=== PATIENT | female | born 1965 | race Caucasian/White ===

== ENCOUNTER → 2023-06-24 19:02 | Outpatient (REF) | payer BC, SELFPAY | LOC: WDC 19:02 | PROVIDERS: ATTENDING PHYSICIAN Nurse Practitioner | DX: Z12.31 Encounter for screening mammogram for malignant neoplasm of breast (principal) | CPT/HCPCS: 77063; 77067 ==

== ENCOUNTER → 2023-07-01 09:02 | Outpatient (REF) | payer BC, SELFPAY | LOC: RAD 09:02 | PROVIDERS: ATTENDING PHYSICIAN Nurse Practitioner | DX: E04.1 Nontoxic single thyroid nodule (principal) | CPT/HCPCS: 76536 ==

== ENCOUNTER 2024-02-27 17:59 | Inpatient (IN) | payer BC, SELFPAY ==
[2024-02-27] VITALS (15 sets, daily range): BP systolic 0–155; BP diastolic 55–109; BMI 30.7
[2024-02-27] MEDS: MORPHINE SULFATE 2 MG IV (15:14)
--- NOTE | 2024-02-27 15:28 | ED.GENMED ---
History of Present Illness
<Oziel Ham MD - Last Filed: 02/27/24 17:27>
General
Chief Complaint: Extremity Pain (non-traumatic)
Source: patient
Exam Limitations: none
Time Seen by Provider: 02/27/24 14:20
Nursing documentation reviewed up to this point in time: agreed with
History of Present Illness
History of Present Illness:
Patient presents to ED secondary to worsening left thigh pain with swelling, when she accidentally closed the car door on her leg. Denies any other injuries. Denies loss of sensation or weakness. Patient does not take any blood thinning
medications. Denies dizziness or weakness.
Past History
<Oziel Ham MD - Last Filed: 02/27/24 17:27>
Past History
ED Past Medical History: HTN and Other (Migraine)
ED Past Surgical History: Appendectomy, Cholecystectomy and Gynecological
Social History
Tobacco: Non-smoker
Alcohol: Occasional
Drug: None
Personal:
Living: with family
Employment: Employed
Family History
Family History: Other (No significant)
Review of Systems
<Oziel Ham MD - Last Filed: 02/27/24 17:27>
Review of Systems
Allergies reviewed?: Yes
All Other Systems: ROS reviewed and negative except as documented in HPI and ROS
Constitutional: Reports no symptoms
Respiratory: Reports no symptoms
Musculoskeletal: Reports other (leg pain/swelling)
Skin: Reports no symptoms
Neurological: Reports no symptoms
Phy Exam
<Oziel Ham MD - Last Filed: 02/27/24 17:27>
Physical Exam
Physical Exam:
Physical Exam
General: mild painful distress, not acutely ill. afebrile.
Head: nc/at. eomi
Neck: supple. normal range of motion.
Neuro: alert and oriented. no focal neurological deficits
Skin: left distal, medial thigh - an approx 4 cm diameter area of swelling/tenderness
Psychiatric: well kept. interactive and cooperative
Extremities: no calf tenderness.
Course
<Oziel Ham MD - Last Filed: 02/27/24 17:27>
Orders/Labs/Results
Orders:
Orders
02/27/24 14:44
CT Angio Lower Ext W/Wo Iv Contrast [CT Lower Ext Angio W/wo Iv Con] Urgent
Comment:
Reason For Exam: left medial thigh contusion w expanding hematoma
02/27/24 15:00
Morphine Sulfate 2 mg IV NOW STA
02/27/24 15:12
Type+Screen Urgent
Basic Metabolic Panel Urgent
Complete Blood Count/No Diff Urgent
PTT Urgent
Prothrombin Time Urgent
02/27/24 15:32
Fentanyl Citrate/Pf [Sublimaze] 50 mcg IV NOW STA
Ketorolac [Toradol] 15 mg IV NOW STA
02/27/24 15:51
Vascular Surgery Consult Urgent
Consulting Provider: Gilbert Bartlett
Was physician already notified: Yes
Reason for consult: left medial thigh swelling s/p trauma
02/27/24 16:12
HYDROmorphone [Dilaudid] 1 mg .ROUTE .STK-MED ONE
02/27/24 16:18
HYDROmorphone [Dilaudid] 1 mg IV NOW STA
02/27/24 16:27
HYDROmorphone [Dilaudid] 1 mg IV NOW STA
02/27/24 16:35
Fentanyl Citrate/Pf [Sublimaze] 100 mcg .ROUTE .STK-MED ONE
Midazolam HCl [Versed] 2 mg .ROUTE .STK-MED ONE
02/27/24 16:42
Heparin 5,000 units .ROUTE .STK-MED ONE
02/27/24 16:50
Blood Bank Products [* Blood Bank Products] Urgent
Emily Orders: Dhaval Peoples
Blood Bank Products: *Packed RBC Leuko(PRBC's)
Quantity: 2
Transfuse Today: Hold for OR
Reason: Bleeding
02/27/24 16:59
CeFAZolin SODIUM [Ancef] 2,000 mg .ROUTE .STK-MED ONE
Ondansetron Injectable [Zofran] 4 mg .ROUTE .STK-MED ONE
Propofol [Diprivan] 20 ml .ROUTE .STK-MED
Rocuronium [place] [Rocuronium] 50 mg .ROUTE .STK-MED ONE
Sugammadex Sodium [Bridion] 200 mg .ROUTE .STK-MED ONE
02/27/24 17:09
Sugammadex Sodium [Bridion] 200 mg .ROUTE .STK-MED ONE
02/27/24 17:17
VASCULAR OR PATHOLOGY Routine
Pre-Operative Diagnosis: Tense Hematoma
Operative Procedure: Evacuation Left Thigh Hematoma
Surgeon: Shelton
Circulating Nurse: Meredith
Specimen Type: Left Thigh Hematoma
Abnormal Lab Results
02/27/24
15:12
Glucose 103 H mg/dl
(70-99)
Crossmatch IS Only See Detail
02/27/24 15:12
02/27/24 15:12
Vital Signs
Initial and Last Documented VS:
Initial Vital Signs
Temp Pulse Resp BP Pulse Ox
99.1 F 128 18 155/109 96
02/27/24 14:00 02/27/24 14:00 02/27/24 14:00 02/27/24 14:00 02/27/24 14:00
Last Documented Vital Signs
Temp Pulse Resp BP Pulse Ox
99.1 F 111 18 140/84 99
02/27/24 14:00 02/27/24 16:23 02/27/24 16:23 02/27/24 16:23 02/27/24 16:23
<Rayne Mcdonald, DO - Last Filed: 02/27/24 16:22>
Orders/Labs/Results
Orders:
Orders
02/27/24 14:44
CT Angio Lower Ext W/Wo Iv Contrast [CT Lower Ext Angio W/wo Iv Con] Urgent
Comment:
Reason For Exam: left medial thigh contusion w expanding hematoma
02/27/24 15:00
Morphine Sulfate 2 mg IV NOW STA
02/27/24 15:12
Type+Screen Urgent
Basic Metabolic Panel Urgent
Complete Blood Count/No Diff Urgent
PTT Urgent
Prothrombin Time Urgent
02/27/24 15:32
Fentanyl Citrate/Pf [Sublimaze] 50 mcg IV NOW STA
Ketorolac [Toradol] 15 mg IV NOW STA
02/27/24 15:51
Vascular Surgery Consult Urgent
Consulting Provider: Gilbert Bartlett
Was physician already notified: Yes
Reason for consult: left medial thigh swelling s/p trauma
02/27/24 16:12
HYDROmorphone [Dilaudid] 1 mg .ROUTE .STK-MED ONE
02/27/24 16:18
HYDROmorphone [Dilaudid] 1 mg IV NOW STA
02/27/24 16:27
HYDROmorphone [Dilaudid] 1 mg IV NOW STA
02/27/24 16:35
Fentanyl Citrate/Pf [Sublimaze] 100 mcg .ROUTE .STK-MED ONE
Midazolam HCl [Versed] 2 mg .ROUTE .STK-MED ONE
02/27/24 16:42
Heparin 5,000 units .ROUTE .STK-MED ONE
02/27/24 16:50
Blood Bank Products [* Blood Bank Products] Urgent
'herrera Orders: Dhaval Peoples
Blood Bank Products: *Packed RBC Leuko(PRBC's)
Quantity: 2
Transfuse Today: Hold for OR
Reason: Bleeding
02/27/24 16:59
CeFAZolin SODIUM [Ancef] 2,000 mg .ROUTE .STK-MED ONE
Ondansetron Injectable [Zofran] 4 mg .ROUTE .STK-MED ONE
Propofol [Diprivan] 20 ml .ROUTE .STK-MED
Rocuronium [place] [Rocuronium] 50 mg .ROUTE .STK-MED ONE
Sugammadex Sodium [Bridion] 200 mg .ROUTE .STK-MED ONE
02/27/24 17:09
Sugammadex Sodium [Bridion] 200 mg .ROUTE .STK-MED ONE
02/27/24 17:17
VASCULAR OR PATHOLOGY Routine
Pre-Operative Diagnosis: Tense Hematoma
Operative Procedure: Evacuation Left Thigh Hematoma
Surgeon: Shelton
Circulating Nurse: Merediht
Specimen Type: Left Thigh Hematoma
Abnormal Lab Results
02/27/24
15:12
Glucose 103 H mg/dl
(70-99)
Crossmatch IS Only See Detail
02/27/24 15:12
02/27/24 15:12
Vital Signs
Initial and Last Documented VS:
Initial Vital Signs
Temp Pulse Resp BP Pulse Ox
99.1 F 128 18 155/109 96
02/27/24 14:00 02/27/24 14:00 02/27/24 14:00 02/27/24 14:00 02/27/24 14:00
Last Documented Vital Signs
Temp Pulse Resp BP Pulse Ox
99.1 F 111 18 140/84 99
02/27/24 14:00 02/27/24 16:23 02/27/24 16:23 02/27/24 16:23 02/27/24 16:23
<Oziel Ham MD - Last Filed: 02/27/24 17:27>
MDM/Problems Addressed
MDM/Problems Addressed:
History and exam concerning for significant hematoma from acute trauma, with concern for potential active bleed. Patient, however, remains neurovascularly intact.
CT angiogram lower extremity pending.
Discussed with on-call vascular surgeon, Dr. Bartlett, who will come and evaluate the patient in ED.
<Rayne Mcdonald DO - Last Filed: 02/27/24 16:22>
*Critical Care Note
Total Time (30-74mins, 75-104mins- exclusive of procedures): 37
comment:
The high probability of a clinically significant, sudden or life threatening deterioration of the neurovascular system(s) required my full and direct attention, intervention and personal management. The aggregate critical care time was [] minutes.
This time is in addition to time spent performing reported procedures but includes the following:
[x] Data Review and interpretation
[x] Patient assessment and monitoring of vital signs
[x] Documentation
[x] Medication orders and management
<Rayne Mcdonald DO - Last Filed: 02/27/24 16:22>
Update Note
Update Note:
Attending Sign Out Note
15:40 -assuming care of patient, 58-year-old female presenting with left thigh swelling. Patient was getting in the car and accidentally struck her leg with the car door. She has since had increased swelling to the left medial thigh. She is not
on any blood thinners. Patient seen and evaluated by prior physician, concern for expanding hematoma. Patient currently has ice on the leg. No reported neurovascular compromise at this time. Plan for vascular surgery consultation and CT angio
16:10 -called to bedside. Patient with worsening pain. Per nursing staff, much larger. Difficult obtaining dopplerable pulse. Did urgently call vascular surgery, LANDRY at bedside and vascular surgeon is aware. Concern for active bleeding on CT
scan. Plan for admission and likely operative management.
ED Attending Note
<Oziel Ham MD - Last Filed: 02/27/24 17:27>
-
Portions of this chart may have been created with voice recognition software.� Occasional wrong word or��sound alike� substitutions may have occurred due to the inherent limitations of voice recognition software.
Discharge Plan
Departure
Patient Disposition: Admit
Date of Disposition: 02/27/24
Time of Disposition: 16:20
Presentation/result/management discussed w/ accepting MD/DO: Hospitalist
Patient with high blood pressure during this ER visit?: No
Condition: Serious
Discharge Problem:
Traumatic hematoma of left lower leg
Interventions
Interventions:
*Risk Screen - Suicide Last Done: 02/27/24 14:00
*General Assessment Last Done: 02/27/24 14:00
*Neglect/Abuse Screening Last Done: 02/27/24 14:00
*ED COVID-19 Vaccine History Last Done: 02/27/24 14:00
*Nursing Disposition Last Done: 02/27/24 16:50
ED-Skin Assessment Last Done: 02/27/24 14:12
ED-Musculoskeletal Assessment Last Done: 02/27/24 14:12
Discharge Date and Time
Discharge Date/Time: 02/27/24 16:51
[2024-02-27 15:30] LABS: Hemoglobin 13.9 g/dL (12.0-16.0); Mean Corp Hgb Conc. 34.8 g/dL (33.0-37.0); Mean Corpuscular Hgb 29.1 pg (27.0-31.0); Mean Corpuscular Volume 83.7 fL (81.0-99.0); Mean Platelet Volume 8.3 fL (7.4-10.4); Platelet Count 270 10^3/uL (130-400); Red Blood Cell Count 4.78 10^6/uL (4.20-5.40); Red Cell Dist. Width 12.9 % (11.5-14.5); White Blood Cell Count 5.8 10^3/uL (4.8-10.8)
[2024-02-27] MEDS: SUBLIMAZE 50 MCG IV (15:36)
[2024-02-27] MEDS: TORADOL 15 MG IV (15:37)
[2024-02-27 15:41] LABS: APTT 28.2 Sec (23.4-35.0); INR 0.98; PT 13.5 Sec (11.4-14.6)
[2024-02-27 15:44] LABS: Blood Urea Nitrogen 17 mg/dl (7-17); Calcium 9.8 mg/dl (8.4-10.2); Carbon Dioxide 24 mmol/L (22-30); Chloride 107 mmol/L (98-107); Glucose 103 mg/dl (70-99); Potassium 3.8 mmol/L (3.5-5.1); Sodium 145 mmol/L (135-145); eGFR > 60.00
[2024-02-27] MEDS: DILAUDID 1 MG IV ×2 (16:18→16:28)
--- NOTE | 2024-02-27 16:27 | HPS.HSE ---
Family Physician
-
Family Physician: Dylon Allen MD
Chief Complaint
-
Left Lower Extremity Traumatic Hematoma
History of Present Illness
Patient taken Emergently to OR. History obtained from records
58F Obesity HTN Migraine Anxiety Insomnia Appendectomy Cholecystectomy presented for evaluation progressive swelling pain left thigh accidental injury with car door. CT concerning for Large 13 cm Acute Hematoma Medial Distal Left Thigh with active
arterial extravasation of blood into hematoma. Patient was evaluated by Vascular and taken to OR emergently for hematoma evacuation and control of bleeding.
Medical History
Past Medical History
Past Medical History: Reports Other (as above)
Past Surgical History: Reports Other (as above)
Social History
Tobacco: Non-smoker
Alcohol: Occasional
Drug: None
Personal:
Living: With Family
Employment: Employed
Family History
Family History: Not pertinent
Allergies / Home Medications
Allergies reflects when Allergies were last updated in [facility].
Home Medications with original date entered in [facility]
Allergy/Medication List:
Allergies
Allergy/AdvReac Type Severity Reaction Status Date / Time
acetaminophen [From Percocet] Allergy Nausea Verified 02/27/24 14:03
oxycodone Allergy horrible Verified 02/27/24 14:03
nausea for
2 days
penicillin G Allergy Rash - as Verified 02/27/24 14:03
a child
Penicillins Allergy Rash - as Verified 02/27/24 14:03
a child
Home Medications
sumatriptan 85 mg-naproxen 500 mg tablet (Treximet) 1 tab PO DAILYPRN PRN migraine 04/25/09
aspirin 81 mg tablet,delayed release 81 mg PO DAILY 05/26/15
ibuprofen 200 mg tablet (Advil) 200 mg PO Q6HPRN PRN mild pain 05/26/15
magnesium oxide 300 mg PO DAILY 05/26/15
albuterol sulfate 90 mcg/actuation aerosol inhaler 2 puff inhalation R Q4HPRN PRN sob/wheezing 02/27/24
bupropion HCl 300 mg 24 hr tablet, extended release 300 mg PO DAILY 02/27/24
cholecalciferol (vitamin D3) 50 mcg (2,000 unit) tablet 50 mcg PO DAILY 02/27/24
estradiol 2 mg (7.5 mcg/24 hour) vaginal ring (Estring) 1 vag ring vaginal Q90D 02/27/24
melatonin 5 mg tablet 5 - 10 mg PO HS 02/27/24
semaglutide (weight loss) 2.4 mg/0.75 mL subcutaneous pen injector (Wegovy) 2.4 mg SC TH 02/27/24
zolpidem 3.5 mg sublingual tablet 3.5 mg sublingual HSPRN PRN waking in middle of the night 02/27/24
Review of Systems
-
Unable to obtain full review of systems at this time due to: Other (Unable to assess. Patient taken emergently to OR)
Physical Exam
Vital Signs
Vital Signs
Temp Pulse Resp BP Pulse Ox
99.1 F 111 18 140/84 99
02/27/24 14:00 02/27/24 16:23 02/27/24 16:23 02/27/24 16:23 02/27/24 16:23
Physical Exam
General: Other (unable to assess, patient taking emergently to OR)
Laboratory Results
-
02/27/24 15:12
02/27/24 15:12
Laboratory Results
PT 13.5 Sec (11.4-14.6) 02/27/24 15:12
INR 0.98 02/27/24 15:12
APTT 28.2 Sec (23.4-35.0) 02/27/24 15:12
Impression/Plan
-
IMPRESSION:
58F Obesity HTN Migraine Anxiety Insomnia Appendectomy Cholecystectomy presented for evaluation progressive swelling pain left thigh accidental injury with car door. CT concerning for Large 13 cm Acute Hematoma Medial Distal Left Thigh with active
arterial extravasation of blood into hematoma. Patient was evaluated by Vascular and taken to OR emergently for hematoma evacuation and control of bleeding.
PLAN:
#LLE traumatic hematoma with active arterial extravasation s/p emergent evacuation bleeding control done by Vascular 02/27/24
Tele Admit
Post-op care as per Vascular
Pain control Dilaudid IV q3hprn 0.5 mg mod pain, 1.0 mg severe pain
#reported hx HTN on no antihypertensives at home
BP elevated in ED likely d/t pain
Monitor for now, can consider antihypertensives if BP becomes significantly elevated post-op despite pain controll
#Migraine
Ibuprofen prn headache
reported Tylenol allergy needs to be clarified before considering use
Consider sumatriptan if migraine develops
#Anxiety
#Insomnia
cont home wellbutrin
Melatonin 5 mg HS
Ambien 2.5 mg HSPRN sleep
DVT ppx SCDs
Full Code
I spent a total of 60 minutes with the patient or on the floor. More than 50% of this time involved counseling and coordination of care.
--- NOTE | 2024-02-27 16:38 | CON.VAS ---
Consultation
Consultation Request
Date/Time Consultation Performed: 02/27/2024
Requesting Provider: Oziel Ham MD
Performing Provider: Elizabeth Garcia NP-C for Dhaval Peoples MD
Reason for Consultation: Left thigh hematoma
Medical History
-
Chief Complaint: Left thigh hematoma s/p trauma
History of Present Illness:
This is a 58 year old female with past medical history of hypertension and migraine who reported to [place] ED following a trauma to her left thigh. Patient and endorse that patient was in her usual state of health getting out of her car
when the car door shut on her leg. She states initially following the injury her leg was not that painful but she felt the swelling making her jeans tight which prompted her to seek medical evaluation. Once in ED she noted the 'lump' getting bigger
and pain increasing significantly, she states currently pain is a 9/10 on the pain scale. She denies motor changes in left leg but does note decreased sensation over top of her foot. Denies any additional injuries. Denies prior history of vascular
surgical intervention or anticoagulation medication.
Past Medical History
Past Medical History: HTN and Other (migraine )
Past Surgical History: Appendectomy, Cholecystectomy and Gynecological
Social History
Tobacco: Non-Smoker
Alcohol: Occasional
Personal:
Living: With Family
Employment: Employed
Allergies / Home Medications
Allergy/AdvReac Type Severity Reaction Status Date / Time
acetaminophen [From Percocet] Allergy Nausea Verified 02/27/24 14:03
oxycodone Allergy horrible Verified 02/27/24 14:03
nausea for
2 days
penicillin G Allergy Rash - as Verified 02/27/24 14:03
a child
Penicillins Allergy Rash - as Verified 02/27/24 14:03
a child
�Medication �Instructions �Recorded �Confirmed �Type
sumatriptan 85 mg-naproxen 500 mg 1 tab PO DAILYPRN PRN migraine 04/25/09 02/27/24 History
tablet (Treximet)
aspirin 81 mg tablet,delayed 81 mg PO DAILY 05/26/15 02/27/24 History
release
ibuprofen 200 mg tablet (Advil) 200 mg PO Q6HPRN PRN mild pain 05/26/15 02/27/24 History
magnesium oxide 300 mg PO DAILY 05/26/15 02/27/24 History
albuterol sulfate 90 mcg/actuation 2 puff inhalation R Q4HPRN PRN 02/27/24 02/27/24 History
aerosol inhaler sob/wheezing
bupropion HCl 300 mg 24 hr tablet, 300 mg PO DAILY 02/27/24 02/27/24 History
extended release
cholecalciferol (vitamin D3) 50 50 mcg PO DAILY 02/27/24 02/27/24 History
mcg (2,000 unit) tablet
estradiol 2 mg (7.5 mcg/24 hour) 1 vag ring vaginal Q90D 02/27/24 02/27/24 History
vaginal ring (Estring)
melatonin 5 mg tablet 5 - 10 mg PO HS 02/27/24 02/27/24 History
semaglutide (weight loss) 2.4 2.4 mg SC TH 02/27/24 02/27/24 History
mg/0.75 mL subcutaneous pen
injector (Wegovy)
zolpidem 3.5 mg sublingual tablet 3.5 mg sublingual HSPRN PRN waking 02/27/24 02/27/24 History
in middle of the night
Review of Systems
-
History Source: Patient
Constitutional: Reports No Symptoms
EENT: Reports No Symptoms
Respiratory: Reports No Symptoms
Cardiac: Reports No Symptoms
Vascular: Reports Numbness (at top of left foot)
Abdomen/GI: Reports No Symptoms
: Reports No Symptoms
Musculoskeletal: Reports Edema (swelling at medial left thigh )
Skin: Reports No Symptoms
Neurological: Reports No Symptoms
Endocrine: Reports No Symptoms
Physical Exam
Vital Signs
Temp Pulse Resp BP Pulse Ox
99.1 F 111 18 140/84 99
02/27/24 14:00 02/27/24 16:23 02/27/24 16:23 02/27/24 16:23 02/27/24 16:23
Lab Results
02/27/24 15:12
02/27/24 15:12
Physical Exam
General: Other (Appears in pain, tearful )
HEENT: Normocephalic, Anicteric and Atraumatic
Respiratory: Non Labored Respirations
Cardiac: Negative JVD
GI: Soft, Non Tender and Non Distended
Musculoskeletal: Edema (large pulsatile hematoma at left medial thigh )
Skin: Warm
Neuro: AO x 3 and No Motor Deficits
Pulses: Left Dorsalis Pedis: +1 and Bilateral Posterior Tibial: +1
Assessment / Plan
-
Assessment: 58 year old female with left medial thigh hematoma following trauma with CT evidence of active arterial extravasation
Plan:
Emergent OR for hematoma evacuation and control of bleeding
2 Units PRBC on hold
Reviewed HPI, PE, and ROS with attending Dr. Dhaval Peoples who agrees with plan
--- NOTE | 2024-02-27 16:56 | W.PN.UPDATE ---
Update Note
Progress Note Update
58-year-old female with inadvertent injury when car door hit her leg today. Occurred at 1 PM. Initially she had some discomfort but not severe. Then suddenly had acute severe pain and expansion/swelling. Continued pain brought her to the
emergency room. To me currently she denies any numbness or weakness. She thought she had some tingling before but seems to have resolved. She is not on any anticoagulation. No other major medical issues that she reports. On exam/she is awake
and alert. Head is normocephalic and atraumatic. Eyes are anicteric. Neck is soft without jugular venous distention. Left distal thigh medially with large subcutaneous hematoma. Skin is intact and not blistered, not stretched or threatened
immediately. Feet are both warm with palpable 2+ PT pulses bilaterally. Left foot motor/sensory intact. CT scan reviewed. Large subcutaneous medial thigh hematoma. There is evidence of active extravasation into the hematoma but there is no
major arterial branches that I can see that are avulsed or leaking into there. Therefore I cannot identify the actual source. I discussed with patient urgent evacuation hematoma due to expansile hematoma. Discussed risk/benefit/alternatives.
Discussed possible need for leaving wound open, possible closure over drains. Discussed possible need to return to the operating room. Discussed possible angiography at this time with possible angioplasty/stenting/coil embolization. She
understands all these things and wishes to proceed. Emergent OR now. I discussed with her in the waiting room as well. They both understand and wish for me to proceed.
--- NOTE | 2024-02-27 17:50 | W.SUR.POST ---
Surgical Immediate Post Op
Note
Pre Op Diagnosis: Tense left thigh hematoma
Post Op Diagnosis: Same
Procedure Performed: Left thigh hematoma evacuation
Primary Surgeon: Shelton
Assist: Kristian ASHLEY
Anesthesia: General
Estimated Blood Loss: 20cc
Fluids: See anesthesia flowsheet
Drains/Shunts: 2 JPs left thigh
Specimens/Cultures: Hematoma
Doppler/Duplex/Angio (Y/N): N
Complications: None
Operative Findings: Successful hematoma evacuation
--- NOTE | 2024-02-27 17:53 | OR.RPT ---
Operative Report
Operative Report
PROCEDURE DATE: 02/27/2024
Preoperative diagnosis: Tense, expansile traumatic hematoma left thigh.
Postoperative diagnosis: Same
Procedure: Emergent evacuation left thigh hematoma with pulse lavage irrigation and closure over drains.
Surgeon: Shelton
Parts Administrator: STACY Townsend, required for all aspects of procedure including assistance with traction/countertraction, assistance with closure.
Complications: None
Anesthesia: General
Indications for procedure:
Tense, expansile hematoma left thigh subcutaneous tissues. Risk/benefit/alternatives of emergent evacuation were all fully discussed. Patient and her understood all and wished to proceed.
Description of procedure:
Patient was identified brought to the operating room placed on the table in supine position. After the adequate administration of anesthesia she was prepped and draped in the standard surgical fashion. A standard preoperative timeout was
undertaken and everybody was in agreement the plan. The obvious site of the large left thigh medial distal hematoma was noted and an incision longitudinally was made overlying the middle of this hematoma staying slightly anteriorly to avoid any
injury to a potential saphenous vein if it was in the field. This is carried through the skin and then into the subcutaneous tissues. In the deeper subcutaneous tissues there was a pocket through which a large hematoma was expressed. Is partially
liquefied, partially clotted. This was all fully evacuated. This had created a large space in the subcutaneous tissues. It was just anterior to the muscle/fascia but deep to the deeper subcutaneous fat. I packed with sponges the site and
then remove the packing to examine for any bleeding. There was really no active bleeding. Just diffuse small areas of bruising which I either clipped or used the electrocautery. There was 1 small perforating vein branch from the subfascial space
that was clipped. An additional area was cauterized. I then used 2 L of normal saline and pulse lavage irrigated the entire cavity. We then dried it and examined carefully again and noted no other bleeding sites. I then packed it with packing
once again and then waited and remove the packing and examined once again. No further bleeding was noted. Therefore at this point 2 large Mendoza drains were brought out through separate stab incisions and the skin and secured to the skin with nylon
suture. They were placed in the deep subcutaneous bed. I again examined and confirm no active bleeding. Then we closed the deeper subcutaneous tissues/Huey's fascia with interrupted 2-0 Vicryl suture. We then ran deep dermal 3-0 Vicryl running
suture. Finally skin clips were applied. Dressings were applied and a compressive Bharath bandage was applied. The patient tolerated the procedure well.
[2024-02-27 18:25] LABS: Hematocrit 35.3 % (37.0-47.0); Hemoglobin 12.1 g/dL (12.0-16.0); Mean Corp Hgb Conc. 34.3 g/dL (33.0-37.0); Mean Corpuscular Hgb 28.5 pg (27.0-31.0); Mean Corpuscular Volume 83.3 fL (81.0-99.0); Mean Platelet Volume 8.2 fL (7.4-10.4); Platelet Count 219 10^3/uL (130-400); Red Blood Cell Count 4.24 10^6/uL (4.20-5.40); Red Cell Dist. Width 13.4 % (11.5-14.5)
[2024-02-27] MEDS: ZOFRAN 4 MG IV (18:33)
[2024-02-27 18:42] LABS: Blood Urea Nitrogen 16 mg/dl (7-17); Calcium 8.2 mg/dl (8.4-10.2); Carbon Dioxide 23 mmol/L (22-30); Chloride 111 mmol/L (98-107); Estimated Creatinine Clearance 87 ml/min; Glucose 108 mg/dl (70-99); Potassium 3.9 mmol/L (3.5-5.1); Sodium 143 mmol/L (135-145); eGFR > 60.00
[2024-02-27] MEDS: COMPAZINE 5 MG IV (18:44)
--- NOTE | 2024-02-27 20:00 | PTCARENOTE ---
Patient received from PACU, AAOX3, offers no complaints. NSR, blood pressure as documented. swelling noted to left knee. Palpable DPS. Lungs clear, on room air. Abdomen soft. #20 g in RAC, #20 g in LAC flushed and patent. Left knee with nicolasa,
proximal and distal JPs draining sanguinous. at bedside. Plan of care discussed.
[2024-02-27] MEDS: MELATONIN 5 MG PO (22:12)
[2024-02-28 03:08] VITALS: BP 116/70
[2024-02-28 06:25] LABS: Hematocrit 37.5 % (37.0-47.0); Hemoglobin 12.9 g/dL (12.0-16.0); Mean Corp Hgb Conc. 34.4 g/dL (33.0-37.0); Mean Corpuscular Hgb 29.6 pg (27.0-31.0); Mean Platelet Volume 8.5 fL (7.4-10.4); Platelet Count 244 10^3/uL (130-400); Red Blood Cell Count 4.36 10^6/uL (4.20-5.40); Red Cell Dist. Width 13.4 % (11.5-14.5); White Blood Cell Count 13.4 10^3/uL (4.8-10.8)
[2024-02-28 06:55] LABS: Blood Urea Nitrogen 17 mg/dl (7-17); Calcium 8.9 mg/dl (8.4-10.2); Carbon Dioxide 23 mmol/L (22-30); Chloride 108 mmol/L (98-107); Estimated Creatinine Clearance 86 ml/min; Glucose 113 mg/dl (70-99); Magnesium 2.3 mg/dl (1.6-2.3); Potassium 4.4 mmol/L (3.5-5.1); Sodium 142 mmol/L (135-145); eGFR > 60.00
[2024-02-28 07:15] VITALS: BP 101/62
--- NOTE | 2024-02-28 08:33 | W.PN.HOSP.TC ---
Today's Communication/Plan
-
pain control
wound care
Eventual PT/OT when clear as per Vascular
Assessment / Plan
Assessment / Plan
Physical Exam
General: no acute distress, appears comfortable at this time
HEENT: Normocephalic, Anicteric and Atraumatic
Respiratory: Stable respiratory status on room air, clear to auscultation b/l
Cardiac: S1/S2 RRR. No murmurs rubs gallops
GI: Soft, Non Tender and Non Distended
Ext: LLE bandage clean dry intact two [place] drains in place
Skin: Warm
Neuro: AO x 3
IMPRESSION:
58F Obesity HTN Migraine Anxiety Insomnia Appendectomy Cholecystectomy presented for evaluation progressive swelling pain left thigh accidental injury with car door. CT concerning for Large 13 cm Acute Hematoma Medial Distal Left Thigh with active
arterial extravasation of blood into hematoma. Patient was evaluated by Vascular and taken to OR emergently for hematoma evacuation and control of bleeding.
PLAN:
#LLE traumatic hematoma with active arterial extravasation s/p emergent evacuation bleeding control done by Vascular 02/27/24
Tele Admit
Post-op care as per Vascular
Eventual PT/OT when cleared by Vascular
Pain control Dilaudid IV q3hprn 0.5 mg mod pain, 1.0 mg severe pain
#reported hx HTN on no antihypertensives at home
BP elevated in ED likely d/t pain
Monitor for now, can consider antihypertensives if BP becomes significantly elevated post-op despite pain control
BP well controlled at this time
#Migraine
Ibuprofen or Tylenol prn headache
(confirmed with pt allergy/adverse rxn to percocet does not include Tylenol by itself, reports tolerating Tylenol without issues)
Consider sumatriptan if migraine develops
#Anxiety
#Insomnia
cont home wellbutrin
Melatonin 5 mg HS
Ambien 2.5 mg HSPRN sleep
DVT ppx SCDs
Full Code
I spent a total of 50 minutes with the patient or on the floor. More than 50% of this time involved counseling and coordination of care.
Anticipated Discharge: 24 - 48 hours
Subjective/Interval History
-
Date of Service: February 28, 2024
Seen and examined at bedside in no acute distress. Reports overall feeling well. Pain well controlled at this time.
Objective Data
-
Labs:
Laboratory Results
02/28/24
04:16
WBC 13.4 H
Hgb 12.9
Hct 37.5
Plt Count 244
Sodium 142
Potassium 4.4
Chloride 108 H
Carbon Dioxide 23
BUN 17
Creatinine 0.7
Glucose 113 H
Calcium 8.9
Vital Signs:
Vital Signs
Temp Pulse Resp BP Pulse Ox
97.6 F 102 16 101/62 97
02/28/24 07:15 02/28/24 07:15 02/28/24 07:15 02/28/24 07:15 02/28/24 07:15
I&O
02/27/24 02/28/24 02/29/24
06:59 06:59 06:59
Intake Total 100 / 100
Output Total 475 / 475
Balance -375 / -375
[2024-02-28] MEDS: WELLBUTRIN XL (24 hour extended release) 300 MG PO (09:16)
[2024-02-28] MEDS: VITAMIN D3 (cholecalciferol) 50 MCG PO (09:16)
[2024-02-28] MEDS: ASPIR LOW (ENTERIC COATED) 81 MG PO (09:16)
[2024-02-28] MEDS: MAG-TAB SR 84 MG PO (09:16)
[2024-02-28 11:20] VITALS: BP 114/71
[2024-02-28] MEDS: LOPRESSOR 5 MG IV (12:01)
[2024-02-28 15:15] VITALS: BP 108/66
--- NOTE | 2024-02-28 15:37 | CM ---
Met with pt and her at bedside
Pt lives in a 2 story home with her ; 1 step to enter, 12 steps to 2nd fl, 1/2 bath on FF
Independent at baseline, employed FT, drives
DME - none
SNF/HH - no past hx
Has ride at discharge
PCP - Vivien Parks
Pharm - [facility]
Plan - anticipate home no needs
--- NOTE | 2024-02-28 15:38 | W.PN.UPDATE ---
Update Note
Progress Note Update
Patient comfortable
No complaints
at bedside
CAROLINA drains sanguinous but low volume
Thigh incision clean and dry
Thigh is soft and warm
Skin healthy appearing
Continue dry dressing changes and Bharath wrap compression.
Leave drains for now
PT OT
Will follow
Efren Martinez III, MD
[facility] Vascular Surgery
[phone] (cell)
[2024-02-28] MEDS: NSS 500 IV (16:08)
[2024-02-28] MEDS: TOPROL XL 12.5 MG PO (16:08)
--- NOTE | 2024-02-28 16:29 | PTCARENOTE ---
1201: Patient HR in the 140s. Pt asymptomatic. Dr. Campa notified. EKG and IV Lopressor ordered.
1545: Patient HR in the 140s again, asymptomatic. Dr. Campa notified. PO Lopressor and 500 mL IV fluid bolus ordered.
Care ongoing.
[2024-02-28] MEDS: MOTRIN 200 MG PO (17:19)
[2024-02-28] MEDS: MOTRIN 400 MG PO (18:39)
[2024-02-28 19:20] VITALS: BP 110/64
[2024-02-28] MEDS: MELATONIN PO (22:00)
[2024-02-28 23:00] VITALS: BP 97/57
[2024-02-29] VITALS (8 sets, daily range): BP systolic 100–126; BP diastolic 64–76; PULSE 102
[2024-02-29 06:49] LABS: Hematocrit 32.2 % (37.0-47.0); Hemoglobin 10.9 g/dL (12.0-16.0); Mean Corp Hgb Conc. 33.9 g/dL (33.0-37.0); Mean Corpuscular Hgb 29.5 pg (27.0-31.0); Mean Corpuscular Volume 87.3 fL (81.0-99.0); Mean Platelet Volume 8.5 fL (7.4-10.4); Platelet Count 194 10^3/uL (130-400); Red Blood Cell Count 3.69 10^6/uL (4.20-5.40); Red Cell Dist. Width 13.6 % (11.5-14.5); White Blood Cell Count 6.8 10^3/uL (4.8-10.8)
--- NOTE | 2024-02-29 07:01 | W.PN.VS ---
Today's Communication / Plan
-
continue drain
dressing down tmrw
home tmrw
Assessment/Plan
-
58F POD 1 s/p L leg hematoma evac
-PT
-continue drains, monitor output
-possible DC tmrw with drains
Subjective Data
-
Date of Service: February 29, 2024
Pt seen and examined at bedside. Pain well controlled. Drain 1 - 20cc, Drain 2 - 50cc, serosang. No significant swelling
Objective Data
-
Vital Signs
Temp Pulse Resp BP Pulse Ox
97.7 F 85 18 102/65 98
02/29/24 03:00 02/29/24 03:00 02/29/24 03:00 02/29/24 03:00 02/29/24 03:00
Intake and Output
02/28/24 02/29/24 03/01/24
06:59 06:59 06:59
Intake Total 100 / 100 1200 / 1200
Output Total 475 / 475 70 / 70
Balance -375 / -375 1130 / 1130
Intake:
Oral fluids 0 / 0 1200 / 1200
IV fluids (Total) 100 / 100
Normal saline 100 / 100
IV piggybacks 0 / 0
Output:
Drain Output (Total) 75 / 75 70 / 70
Left Lower Knee Kg-Slaughter 20 / 20 30 / 30
Left Upper Knee Kg-Slaughter 55 / 55 40 / 40
Urine, Voided 400 / 400
Other:
Number of approximated MODERATE 2
amounts of urine
How many times incontinent 1
MODERATE amount urine
Lab Results
02/29/24 06:06
Calcium 8.9 mg/dl (8.4-10.2) 02/28/24 04:16
Magnesium 2.3 mg/dl (1.6-2.3) 02/28/24 04:16
Physical Exam
-
LLE: drain- serosang; palpable DP, no swelling
[2024-02-29 07:09] LABS: Blood Urea Nitrogen 12 mg/dl (7-17); Calcium 8.9 mg/dl (8.4-10.2); Carbon Dioxide 24 mmol/L (22-30); Chloride 108 mmol/L (98-107); Estimated Creatinine Clearance 86 ml/min; Glucose 95 mg/dl (70-99); Potassium 3.8 mmol/L (3.5-5.1); Sodium 141 mmol/L (135-145); eGFR > 60.00
--- NOTE | 2024-02-29 07:35 | W.PN.HOSP.TC ---
Today's Communication/Plan
-
wound and drain care as per vascular
PT/OT
pain control
discharge planning
Assessment / Plan
Assessment / Plan
Physical Exam
General: no acute distress, appears comfortable at this time
HEENT: Normocephalic, Anicteric and Atraumatic
Respiratory: Stable respiratory status on room air, clear to auscultation b/l
Cardiac: S1/S2 RRR. No murmurs rubs gallops
GI: Soft, Non Tender and Non Distended
Ext: LLE bandage clean dry intact two [place] drains in place
Skin: Warm
Neuro: AO x 3
IMPRESSION:
58F Obesity HTN Migraine Anxiety Insomnia Appendectomy Cholecystectomy presented for evaluation progressive swelling pain left thigh accidental injury with car door. CT concerning for Large 13 cm Acute Hematoma Medial Distal Left Thigh with active
arterial extravasation of blood into hematoma. Patient was evaluated by Vascular and taken to OR emergently for hematoma evacuation and control of bleeding.
PLAN:
#LLE traumatic hematoma with active arterial extravasation s/p emergent evacuation bleeding control done by Vascular 02/27/24
Tele Admit
wound and drain care as per Vascular
PT/OT appreciated outpatient PT
Pain control Dilaudid IV q3hprn 0.5 mg mod pain, 1.0 mg severe pain
#reported hx HTN on no antihypertensives at home
BP elevated in ED likely d/t pain
Monitor for now, can consider antihypertensives if BP becomes significantly elevated post-op despite pain control
BP well controlled at this time
#Persistent Sinus Tachy
resolved following Metoprolol 12.5 mg XL daily and bolus
TSH low but T4 wnl
cont monitoring on telemetry
#Migraine
Ibuprofen or Tylenol prn headache
Consider sumatriptan if migraine develops
#Anxiety
#Insomnia
cont home wellbutrin
Melatonin 5 mg HS
Ambien 2.5 mg HSPRN sleep
DVT ppx SCDs
Full Code
I spent a total of 45 minutes with the patient or on the floor. More than 50% of this time involved counseling and coordination of care.
Anticipated Discharge: Within 24 hours
Subjective/Interval History
-
Date of Service: February 29, 2024
No acute distress. Overall reports feeling well. Denies new acute issues. Heart rate improved non-tachy
Objective Data
-
Labs:
Laboratory Results
02/29/24
06:06
WBC 6.8
Hgb 10.9 L
Hct 32.2 L
Plt Count 194 D
Sodium 141
Potassium 3.8
Chloride 108 H
Carbon Dioxide 24
BUN 12
Creatinine 0.7
Glucose 95
Calcium 8.9
Vital Signs:
Vital Signs
Temp Pulse Resp BP Pulse Ox
97.7 F 85 18 102/65 98
02/29/24 03:00 02/29/24 03:00 02/29/24 03:00 02/29/24 03:00 02/29/24 03:00
I&O
02/28/24 02/29/24 03/01/24
06:59 06:59 06:59
Intake Total 100 / 100 1200 / 1200
Output Total 475 / 475 70 / 70
Balance -375 / -375 1130 / 1130
[2024-02-29] MEDS: MOTRIN 400 MG PO (08:35)
[2024-02-29] MEDS: MAG-TAB SR 84 MG PO (08:35)
[2024-02-29] MEDS: ASPIR LOW (ENTERIC COATED) 81 MG PO (08:35)
[2024-02-29] MEDS: TOPROL XL 12.5 MG PO (08:36)
[2024-02-29] MEDS: WELLBUTRIN XL (24 hour extended release) 300 MG PO (08:36)
[2024-02-29] MEDS: VITAMIN D3 (cholecalciferol) 50 MCG PO (08:36)
[2024-02-29 16:40] LABS: TSH Reflex To Free T4 0.24 uIU/ml (0.47-4.68)
[2024-02-29] MEDS: MELATONIN 5 MG PO (20:15)
[2024-03-01 03:06] VITALS: BP 105/63
[2024-03-01 05:45] LABS: Hematocrit 31.4 % (37.0-47.0); Hemoglobin 10.3 g/dL (12.0-16.0); Mean Corp Hgb Conc. 32.8 g/dL (33.0-37.0); Mean Corpuscular Hgb 28.9 pg (27.0-31.0); Mean Platelet Volume 8.5 fL (7.4-10.4); Platelet Count 197 10^3/uL (130-400); Red Blood Cell Count 3.57 10^6/uL (4.20-5.40); Red Cell Dist. Width 13.4 % (11.5-14.5); White Blood Cell Count 6.4 10^3/uL (4.8-10.8)
[2024-03-01 06:25] LABS: Blood Urea Nitrogen 12 mg/dl (7-17); Calcium 8.6 mg/dl (8.4-10.2); Carbon Dioxide 24 mmol/L (22-30); Chloride 107 mmol/L (98-107); Estimated Creatinine Clearance 100 ml/min; Glucose 85 mg/dl (70-99); Sodium 142 mmol/L (135-145); eGFR > 60.00
--- NOTE | 2024-03-01 07:01 | W.PN.HOSP.TC ---
Today's Communication/Plan
-
discharge
Assessment / Plan
Assessment / Plan
Physical Exam
General: no acute distress, appears comfortable at this time
HEENT: Normocephalic, Anicteric and Atraumatic
Respiratory: Stable respiratory status on room air, clear to auscultation b/l
Cardiac: S1/S2 RRR. No murmurs rubs gallops
GI: Soft, Non Tender and Non Distended
Ext: LLE bandage clean dry intact
Skin: Warm
Neuro: AO x 3
IMPRESSION:
58F Obesity HTN Migraine Anxiety Insomnia Appendectomy Cholecystectomy presented for evaluation progressive swelling pain left thigh accidental injury with car door. CT concerning for Large 13 cm Acute Hematoma Medial Distal Left Thigh with active
arterial extravasation of blood into hematoma. Patient was evaluated by Vascular and taken to OR emergently for hematoma evacuation and control of bleeding.
PLAN:
#LLE traumatic hematoma with active arterial extravasation s/p emergent evacuation bleeding control done by Vascular 02/27/24
Tele Admit
PT/OT appreciated outpatient PT (script provided)
Pain controlled with ibuprofen 400 mg Q6HPRN
vascular eval appreciated drains removed, patient stable for discharge.
#3.8 conglomerate multiseptate cysts left ovary
Denies groin/pelvic pain
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
#reported hx HTN on no antihypertensives at home
BP elevated in ED likely d/t pain
BP well controlled at this time
#Persistent Sinus Tachy
resolved following Metoprolol 12.5 mg XL daily and bolus
TSH low but T4 wnl
pt to cont with metoprolol on discharge, follow up with primary care provider to determine when safe to discontinue
#Migraine
asymptomatic during stay
#Anxiety
#Insomnia
cont home wellbutrin
Melatonin 5 mg HS
Ambien 2.5 mg HSPRN sleep
DVT ppx SCDs
Full Code
medically stable for discharge home with outpatient follow up recommendations.
I spent a total of 40 minutes with the patient or on the floor. More than 50% of this time involved counseling and coordination of care.
Anticipated Discharge: Today
Subjective/Interval History
-
Date of Service: March 01, 2024
Seen and examined at bedside in no acute distress sitting up comfortably in chair. Drains removed as per vascular. Overall patient reports feeling well. Eager to go home.
Objective Data
-
Labs:
Laboratory Results
03/01/24
04:22
WBC 6.4
Hgb 10.3 L
Hct 31.4 L
Plt Count 197
Sodium 142
Potassium 4.0
Chloride 107
Carbon Dioxide 24
BUN 12
Creatinine 0.6
Glucose 85
Calcium 8.6
Vital Signs:
Vital Signs
Temp Pulse Resp BP Pulse Ox
98 F 66 20 105/63 98
03/01/24 03:06 03/01/24 03:06 03/01/24 03:06 03/01/24 03:06 03/01/24 03:06
I&O
02/29/24 03/01/24 03/02/24
06:59 06:59 06:59
Intake Total 1200 / 1200 1200 / 1200
Output Total 70 / 70 65 / 65
Balance 1130 / 1130 1135 / 1135
--- NOTE | 2024-03-01 07:50 | W.PN.VS ---
Today's Communication / Plan
-
drains removed.
DC ready from Vascular Surgery perspective
Assessment/Plan
-
58F POD 2 s/p L leg hematoma evac
-PT
-drains removed
-okay to DC home today
Subjective Data
-
Date of Service: March 01, 2024
Seen and examined at bedside. NAEO. Drain 1 and 2 < 40mL for 24 hours. Pain well controlled. Ambulation
Objective Data
-
Vital Signs
Temp Pulse Resp BP Pulse Ox
98 F 66 20 105/63 98
03/01/24 03:06 03/01/24 03:06 03/01/24 03:06 03/01/24 03:06 03/01/24 03:06
Intake and Output
02/29/24 03/01/24 03/02/24
06:59 06:59 06:59
Intake Total 1200 / 1200 1200 / 1200
Output Total 70 / 70 65 / 65
Balance 1130 / 1130 1135 / 1135
Intake:
Oral fluids 1200 / 1200 1200 / 1200
Output:
Drain Output (Total) 70 / 70 65 / 65
Left Lower Knee Kg-Slaughter 30 / 30 30 / 30
Left Upper Knee Kg-Slaughter 40 / 40 35 / 35
Other:
Number of approximated MODERATE 2 2
amounts of urine
Lab Results
03/01/24 04:22
03/01/24 04:22
Calcium 8.6 mg/dl (8.4-10.2) 03/01/24 04:22
Magnesium 2.3 mg/dl (1.6-2.3) 02/28/24 04:16
Physical Exam
-
Left thigh- soft. no hematoma.
[2024-03-01 08:02] VITALS: BP 111/62
[2024-03-01] MEDS: TOPROL XL 12.5 MG PO (10:01)
[2024-03-01] MEDS: MAG-TAB SR 84 MG PO (10:02)
[2024-03-01] MEDS: ASPIR LOW (ENTERIC COATED) 81 MG PO (10:02)
[2024-03-01] MEDS: WELLBUTRIN XL (24 hour extended release) 300 MG PO (10:02)
[2024-03-01] MEDS: VITAMIN D3 (cholecalciferol) 50 MCG PO (10:02)
[2024-03-01] MEDS: MOTRIN 400 MG PO (10:13)
[2024-03-01 11:22] VITALS: BP 116/65
== END 2024-03-01 12:07 | disposition home or self-care (01) | DRG 581 ==
LOC: 2 SOUTH 17:59
PROVIDERS: Emergency Medicine; Nurse Practitioner Acute Care; ADMITTING PHYSICIAN Surgery Vascular Surgery; ATTENDING PHYSICIAN Internal Medicine; EMERGENCY PHYSICIAN Student in an Organized Health Care Education/Training Program; FAMILY PHYSICIAN Radiology Diagnostic Radiology; OTHER PHYSICIAN Nurse Practitioner
PROC: 30233N1 Transfusion of Nonautologous Red Blood Cells into Peripheral Vein, Percutaneous Approach (ICD-10-PCS; 2024-02-27)
PROC: 0Y380ZZ Control Bleeding in Left Femoral Region, Open Approach (ICD-10-PCS; 2024-02-27)
PROC: 0JCM0ZZ Extirpation of Matter from Left Upper Leg Subcutaneous Tissue and Fascia, Open Approach (ICD-10-PCS; 2024-02-27)
DX: S70.12XA Contusion of left thigh, initial encounter (principal); I10 Essential (primary) hypertension; G47.00 Insomnia, unspecified; G43.909 Migraine, unspecified, not intractable, without status migrainosus; F41.9 Anxiety disorder, unspecified; D64.9 Anemia, unspecified; E66.9 Obesity, unspecified; W22.8XXA Striking against or struck by other objects, initial encounter; R00.0 Tachycardia, unspecified; Z88.5 Allergy status to narcotic agent; Z88.0 Allergy status to penicillin; Z79.82 Long term (current) use of aspirin; Z79.85 Long-term (current) use of injectable non-insulin antidiabetic drugs; Z68.30 Body mass index [BMI] 30.0-30.9, adult; Y92.810 Car as the place of occurrence of the external cause
CPT/HCPCS: 88304; 10140; 36430; 73706; 80048; 83735; 84439; 84443; 85027; 85610; 85730; 86850; 86900; 86901; 86920; 93005; 96374; 96375; 97162; 97166; 97535; 99291; P9016; Q9967

== ENCOUNTER → 2024-07-23 07:17 | Outpatient (REF) | payer BC, SELFPAY | LOC: HWRAD 07:17 | DX: E04.1 Nontoxic single thyroid nodule (principal) | CPT/HCPCS: 76536 ==

== ENCOUNTER → 2024-08-05 16:42 | Outpatient (REF) | payer BC, SELFPAY | LOC: RCS 16:42 | DX: Z13.6 Encounter for screening for cardiovascular disorders (principal); Z82.49 Family history of ischemic heart disease and other diseases of the circulatory system | CPT/HCPCS: 93306 ==

== ENCOUNTER → 2024-11-23 08:45 | Outpatient (REF) | payer BC, SELFPAY | LOC: HWRAD 08:45 | DX: M25.512 Pain in left shoulder (principal); G89.29 Other chronic pain; M25.511 Pain in right shoulder | CPT/HCPCS: 73030 ==

== ENCOUNTER → 2024-12-29 12:30 | Outpatient (REF) | payer BC, SELFPAY | LOC: WDC 12:30 | DX: Z12.31 Encounter for screening mammogram for malignant neoplasm of breast (principal) | CPT/HCPCS: 77063; 77067 ==